=== PATIENT | female | born 1935 | race Caucasian/White ===

== ENCOUNTER 2017-05-08 08:23 | Emergency (ER) | payer MEDICARE, BC ==
[~2017-05-08 08:23] MED LIST: ASPI81 PO; ATEN-102 PO; FISH1000 PO; HYDR-2768 PO; I CAP PO; LISI-363 PO; OMEP20TA PO; ROSU20 PO
[2017-05-08 08:28] VITALS: BP 196/84; PULSE 80; RESP 16; TEMP 98.8; O2SAT 97
--- NOTE | 2017-05-08 08:37 | PD ---
HPI Chief Complaint: Abdominal Pain Time Seen by Provider: 08:27 Travel History International Travel<30 days: No Contact w/Intl Traveler<30days: No History of Present Illness HPI 82yo F with PMH of HTN and CAD presents to the ED with c/o lower abdominal pain for 2 days. Pain is mainly in left lower abdomen and radiates across lower abdomen. Had nonbloody diarrhea yesterday. Associated with nausea but no vomiting. Denies any fever, chest pain, sob, dysuria, hematuria. Previous abdominal surgery include hernia repair. PFSH Past Medical History Cardiac Catheterization: Yes High Cholesterol: Yes Chest Pain: Yes Coronary Artery Disease: Yes Diminished Hearing: Yes ([place]) GERD: Yes Hypertension: Yes Inguinal Hernia: Yes (LT SIDE REPAIR) Myocardial Infarction: Yes (X 2) Menopausal: Yes Past Surgical History Abdominal Surgery: Yes (ABDOMINAL LEFT GROIN) Coronary Artery Bypass Graft: Yes (X 5 VESSELS) Social History Alcohol Use: No Tobacco Use: No (QUIT, APPROXIMATELY 20 YRS AGO, SMOKED 1/2 PPD) Substance Use: No Allergies-Medications (Allergen,Severity, Reaction): Coded Allergies: pyridoxal phosphate (Verified Allergy, Severe, Rash, 05/08/17) Reported Meds & Prescriptions Reported Meds & Active Scripts Active Miralax Powder (Polyethylene Glycol 3350 Powder) 17 Gm Powd 17 Gm PO DAILY Mix and dissolve one measuring cap-ful (17 grams) in water or juice. Hydrocodone-Acetaminophen 5-325 mg Tab 1 Tab PO Q6H PRN Tylenol (Acetaminophen) 325 Mg Tab 650 Mg PO Q6H PRN Reported Preservision Areds (Multiple Vitamins W/ Minerals) 1 Tab 1 Tab PO DAILY Pravastatin 80 Mg Tab 80 Mg PO DAILY Aspirin Children's (Aspirin) 81 Mg Chew 81 Mg CHEW DAILY Hydrochlorothiazide 25 Mg Tab 37.5 Mg PO DAILY Atenolol 25 Mg Tab 25 Mg PO HS Atenolol 50 Mg Tab 50 Mg PO DAILY Lisinopril 40 Mg Tab 40 Mg PO DAILY Omeprazole 20 Mg Tab 20 Mg PO DAILY Amlodipine (Amlodipine Besylate) 5 Mg Tab 5 Mg PO DAILY Review of Systems Except as stated in HPI: all other systems reviewed are Neg Physical Exam Narrative GENERAL: 82yo F not in distress. SKIN: Focused skin assessment warm/dry. HEAD: Atraumatic. Normocephalic. CARDIOVASCULAR: Regular rate and rhythm. No murmur appreciated. RESPIRATORY: No accessory muscle use. Clear to auscultation. Breath sounds equal bilaterally. GASTROINTESTINAL: Abdomen soft, Mild TTP LLQ. No rebound tenderness or guarding. RECTAL: External hemorrhoids. MUSCULOSKELETAL: No obvious deformities. No clubbing. No cyanosis. No edema. NEUROLOGICAL: Awake and alert. No obvious cranial nerve deficits. Motor grossly within normal limits. Normal speech. PSYCHIATRIC: Appropriate mood and affect; insight and judgment normal. Data Data Last Documented VS Vital Signs Date Time Temp Pulse Resp B/P (MAP) Pulse Ox O2 Delivery O2 Flow Rate FiO2 05/08/17 11:44 05/08/17 11:42 66 16 97 Room Air 05/08/17 08:28 98.8 Orders Orders Complete Blood Count With Diff (05/08/17 08:34) Comprehensive Metabolic Panel (05/08/17 08:34) Lipase (05/08/17 08:34) Urinalysis - C+S If Indicated (05/08/17 08:34) Ct Abd/Pel W Iv Contrast(Rout) (05/08/17 08:34) Morphine Inj (Morphine Inj) (05/08/17 08:45) Ondansetron Inj (Zofran Inj) (05/08/17 08:45) Iohexol 350 Inj (Omnipaque 350 Inj) (05/08/17 09:47) Ketorolac Inj (Toradol Inj) (05/08/17 11:30) Labs Laboratory Tests Test 05/08/17 08:54 White Blood Count 7.3 TH/MM3 Red Blood Count 4.10 MIL/MM3 Hemoglobin 11.7 GM/DL Hematocrit 35.3 % Mean Corpuscular Volume 86.1 FL Mean Corpuscular Hemoglobin 28.6 PG Mean Corpuscular Hemoglobin Concent 33.2 % Red Cell Distribution Width 13.6 % Platelet Count 173 TH/MM3 Mean Platelet Volume 8.8 FL Neutrophils (%) (Auto) 81.1 % Lymphocytes (%) (Auto) 12.2 % Monocytes (%) (Auto) 6.1 % Eosinophils (%) (Auto) 0.2 % Basophils (%) (Auto) 0.4 % Neutrophils # (Auto) 6.0 TH/MM3 Lymphocytes # (Auto) 0.9 TH/MM3 Monocytes # (Auto) 0.4 TH/MM3 Eosinophils # (Auto) 0.0 TH/MM3 Basophils # (Auto) 0.0 TH/MM3 CBC Comment DIFF FINAL Differential Comment Urine Collection Type CLEAN CATCH Urine Color YELLOW Urine Turbidity SLIGHT Urine pH 6.0 Urine Specific [place] 1.023 Urine Protein 100 mg/dL Urine Glucose (UA) NEG mg/dL Urine Ketones 15 mg/dL Urine Occult Blood NEG Urine Nitrite NEG Urine Bilirubin NEG Urine Leukocyte Esterase NEG Urine Squamous Epithelial Cells 0-5 /hpf Urine Amorphous Sediment FEW Urine Hyaline Casts 0-2 /lpf Microscopic Urinalysis Comment CULT NOT INDICATED Urine Collection Time 0854 Blood Urea Nitrogen 17 MG/DL Creatinine 1.10 MG/DL Random Glucose 122 MG/DL Total Protein 7.7 GM/DL Albumin 3.5 GM/DL Calcium Level 9.4 MG/DL Alkaline Phosphatase 61 U/L Aspartate Amino Transf (AST/SGOT) 18 U/L Alanine Aminotransferase (ALT/SGPT) 11 U/L Total Bilirubin 0.6 MG/DL Sodium Level 133 MEQ/L Potassium Level 3.5 MEQ/L Chloride Level 100 MEQ/L Carbon Dioxide Level 21.5 MEQ/L Anion Gap 12 MEQ/L Estimat Glomerular Filtration Rate 47 ML/MIN Lipase 99 U/L [facility] Medical Decision Making Medical Screen Exam Complete: Yes Emergency Medical Condition: Yes Differential Diagnosis Acute diverticulitis vs. nephrolithiasis vs. cystitis Narrative Course 82yo F with left lower abdominal pain. It is very mild on exam and pt is well appearing. Labs reviewed, no leukocytosis. Mild hyponatremia at 133. Lipase normal. UA showed no leukocyte. Culture not indicated. CT a/p showed circumferential wall thickening within rectum. Recommend rectal exam for hemorrhoids to exclude infiltrating mass. Pt has history of hemorrhoids. Rectal exam showed external hemorrhoids. No mass palpated on rectal exam. Pt' s pain improved after morphine 2mg and zofran. Pt is tolerating PO. Return precautions given. Diagnosis Primary Impression: Abdominal pain Qualified Codes: R10.32 - Left lower quadrant pain Patient Instructions: General Instructions Departure Forms: Tests/Procedures Additional Instructions: Please follow up with your primary care physician in 2-3 days. Return to the ED if symptoms worsen. Med/Other Pt SpecificInfo: Prescription(s) given Scripts Acetaminophen (Tylenol) 325 Mg Tab 650 MG PO Q6H Y for PAIN SCALE 1 TO 4, #20 TAB 0 Refills Prov: Nyla Morales DO 05/08/17 Disposition: 01 DISCHARGE HOME Condition: Stable Nyla Morales DO May 08, 2017 08:37
[2017-05-08] MEDS ORDERED: AMLO5TAB2 PO (08:44)
[2017-05-08] MEDS ORDERED: ASPI81CH7 CHEW (08:44)
[2017-05-08] MEDS ORDERED: ATEN25TA PO (08:44)
[2017-05-08] MEDS ORDERED: PRAV80TA2 PO (08:44)
[2017-05-08] MEDS ORDERED: OCUVTAB4 PO (08:44)
[2017-05-08] MEDS ORDERED: OMEP20TA93 PO (08:44)
[2017-05-08] MEDS ORDERED: HYDR25TA5 PO (08:44)
[2017-05-08] MEDS ORDERED: LISI40TA PO (08:44)
[2017-05-08] MEDS ORDERED: ATEN50TA PO (08:44)
[2017-05-08] MEDS ORDERED: ONDANSETRON HCL 4 MG/2 ML VIAL IVP ONE (08:45)
[2017-05-08] MEDS ORDERED: MORPHINE SULFATE 4 MG/ML INJ IV PUSH ONE (08:45)
[2017-05-08 08:59] VITALS: BP 135/57; PULSE 66; RESP 16; O2SAT 95
[2017-05-08 09:08] LABS: BILIRUBIN, URINE NEG (NEG); BLOOD, URINE NEG (NEG); GLUCOSE,URINE NEG (NEG); KETONE, URINE 15 mg/dL (NEG); NITRITE,URINE NEG (NEG); URINE LEUKOCYTE ESTERASE NEG (NEG)
[2017-05-08 09:11] LABS: CHLORIDE 100 MEQ/L (98-107); SODIUM (NA) 133 MEQ/L (136-145)
[2017-05-08 09:14] LABS: CALCIUM 9.4 MG/DL (8.5-10.1)
[2017-05-08 09:15] LABS: ALBUMIN 3.5 GM/DL (3.4-5.0); BICARBONATE 21.5 MEQ/L (21.0-32.0); BLOOD UREA NITROGEN 17 MG/DL (7-18); GLUCOSE,RANDOM 122 MG/DL (74-106); LIPASE 99 U/L (73-393)
[2017-05-08 09:18] LABS: ALT (GPT) 11 U/L (10-53); AST (GOT) 18 U/L (15-37); GLOMERULAR FILTRATION RATE 47 ML/MIN (>89)
[2017-05-08 09:19] LABS: TOTAL BILIRUBIN ADULT 0.6 MG/DL (0.2-1.0); TOTAL PROTEIN 7.7 GM/DL (6.4-8.2)
[2017-05-08 09:20] LABS: ALKALINE PHOSPHATASE 61 U/L (45-117); URINE COLOR YELLOW (YELLW/STRAW)
[2017-05-08 09:21] LABS: AMORPHOUS SEDIMENT, URINE FEW; HYALINE CAST, URINE 0-2 /lpf (RARE); SQUAMOUS EPITHELIAL CELL URINE 0-5 /hpf (0-5)
[2017-05-08 09:22] LABS: BASOPHIL % 0.4 % (0.0-2.0); EOSINOPHIL % 0.2 % (0.0-4.0); HEMATOCRIT 35.3 % (35.0-46.0); HEMOGLOBIN 11.7 GM/DL (11.6-15.3); LYMPH % 12.2 % (9.0-44.0); LYMPHOCYTE # 0.9 TH/MM3 (1.0-4.8); MEAN CELL VOLUME 86.1 FL (80.0-100.0); MEAN CORPUSCULAR HEMOGLOBIN 28.6 PG (27.0-34.0); MEAN CORPUSCULAR HGB CONC 33.2 % (32.0-36.0); MEAN PLATELET VOLUME 8.8 FL (7.0-11.0); MONO % 6.1 % (0.0-8.0); MONOCYTE # 0.4 TH/MM3 (0-0.9); NEUT % 81.1 % (16.0-70.0); PLATELET COUNT 173 TH/MM3 (150-450); RED CELL DISTRIBUTION WIDTH 13.6 % (11.6-17.2); WHITE BLOOD COUNT 7.3 TH/MM3 (4.0-11.0)
[2017-05-08] MEDS ORDERED: IOHEXOL 350 MG/ML 10 ML VIAL (for RAD DIAG) IVCONTRAST ONE (09:47)
[2017-05-08 09:57] VITALS: BP 141/45; PULSE 75; RESP 17; O2SAT 95
--- NOTE | 2017-05-08 10:45 | RADRPT ---
EXAM DATE/TIME: 05/08/2017 09:35 [facility] COMPARISON: No previous studies available for comparison. INDICATIONS : Left lower abdominal pain, nausea, vomiting Diarrhea. IV CONTRAST: 100 cc Omnipaque 350 (iohexol) IV ORAL CONTRAST: No oral contrast ingested. RADIATION DOSE: 8.90 CTDIvol (mGy) MEDICAL HISTORY : Cardiovascular disease. SURGICAL HISTORY : CABG Inguinal hernia repair. ENCOUNTER: Initial ACUITY: 2 days PAIN SCALE: 6/10 LOCATION: Left lower quadrant TECHNIQUE: Volumetric scanning of the abdomen and pelvis was performed. Using automated exposure control and ad justment of the mA and/or kV according to patient size, radiation dose was kept as low as reasonably achievable to obtain optimal diagnostic quality images. DICOM format image data is available electro nically for review and comparison. FINDINGS: LOWER LUNGS: The visualized lower lungs are clear. LIVER: Homogeneous density without lesion. There is no dilation of the biliary tree. Gallstones are identif ied within the gallbladder. No evidence of wall thickening. SPLEEN: Normal size without lesion. PANCREAS: Within normal limits. KIDNEYS: The kidneys appear mildly atrophic bilaterally. No evidence of concerning mass or hydronephrosis. ADRENAL GLANDS: Within normal limits. VASCULAR: Scattered atherosclerosis. BOWEL/MESENTERY: The cecum and terminal ileum are identified within the midline pelvis with the descending and transve rse colon also seen within the left hemipelvis. Scattered diverticuli. No evidence of abnormal wall t hickening. The rectum demonstrates circumferential wall thickening which may be related to hemorrhoid s. Correlation should be made with digital rectal exam.. ABDOMINAL WALL: Within normal limits. RETROPERITONEUM: There is no lymphadenopathy. BLADDER: No wall thickening or mass. REPRODUCTIVE: Within normal limits. INGUINAL: There is no lymphadenopathy or hernia. MUSCULOSKELETAL: Within normal limits for patient age. CONCLUSION: The large bowel is identified within the left hemipelvis and abdomen with the small bowel identified within the mid abdomen and right pelvis. There is circumferential wall thickening identified within t he rectum. This should be correlated with rectal exam for hemorrhoids to exclude any infiltrating mas s. Cholelithiasis without evidence of cholecystitis.. Danae Alexis MD on May 08, 2017 at 10:35 Board Certified Radiologist. This report was verified electronically.
[2017-05-08 10:50] VITALS: BP 113/56; PULSE 62; RESP 17; O2SAT 96
[2017-05-08] MEDS ORDERED: TYLE325T PO (11:29)
[2017-05-08] MEDS ORDERED: KETOROLAC TROMETHAMINE 30 MG/ML (IVP) VIAL IV PUSH ONE (11:30)
[2017-05-08 11:42] VITALS: BP 116/46; PULSE 66; RESP 16; O2SAT 97
[2017-05-09] MEDS ORDERED: HYDR-3516 PO (11:20)
[2017-05-09] MEDS ORDERED: MIRA3350 PO (11:20)
== END 2017-05-08 11:45 | disposition home or self-care (01) ==
LOC: PHED 08:23
DX: R10.32 Left lower quadrant pain (principal); K80.20 Calculus of gallbladder without cholecystitis without obstruction; E78.00 Pure hypercholesterolemia, unspecified; I10 Essential (primary) hypertension; I25.10 Atherosclerotic heart disease of native coronary artery without angina pectoris; I25.2 Old myocardial infarction; K21.9 Gastro-esophageal reflux disease without esophagitis; Z95.1 Presence of aortocoronary bypass graft; Z87.891 Personal history of nicotine dependence
CPT/HCPCS: 74177; 80053; 81001; 83690; 85025; 96374; 96375; 99285; J2270; J2405; Q9967

== ENCOUNTER 2017-05-09 09:55 | Emergency (ER) | payer MEDICARE, BC ==
[~2017-05-09] VITALS: Ht 157.5 cm; Wt 61.0 kg
[~2017-05-09 09:55] MED LIST changes: +AMLO5TAB2 PO; -ASPI81 PO; +ASPI81CH7 CHEW; -ATEN-102 PO; +ATEN25TA PO; +ATEN50TA PO; -FISH1000 PO; -HYDR-2768 PO; +HYDR25TA5 PO; -I CAP PO; -LISI-363 PO; +LISI40TA PO; +OCUVTAB4 PO; -OMEP20TA PO; +OMEP20TA93 PO; +PRAV80TA2 PO; -ROSU20 PO; +TYLE325T PO
[2017-05-09 09:58] VITALS: BP 153/67; PULSE 82; RESP 16; TEMP 98.2; O2SAT 96
--- NOTE | 2017-05-09 11:10 | PD ---
HPI Chief Complaint: Abdominal Pain Time Seen by Provider: 11:09 Travel History International Travel<30 days: No Contact w/Intl Traveler<30days: No Traveled to known affect area: No History of Present Illness HPI 82-year-old female came to the emergency room with history of left lower quadrant abdominal pain that has been there for 2 days. Patient was in the emergency room yesterday and was seen by the other ER physician. There was blood work, UA and CT scan done. The CT scan showed some thickening around the rectal wall which upon the ER physician's rectal exam showed some hemorrhoids. Patient was decided to be discharged home and was given a prescription for hydrocodone. But she refused to take that and instead was sent home on Tylenol. Currently she is back saying that the Tylenol is not really helping and she should have agreed to take the stronger pain medication. She comes here during winter from [place]. Does not have any local physicians in the area. She does have a GI specialist that she gets colonoscopy from once every 5 years. He is back in [place]. Vital signs are stable. Patient has not have bowel movement in 2 days. Patient says that the pain radiates back to her left hip. No aggravating or relieving factors. No history of vomiting, fever or chills. PFSH Past Medical History Narrative Medical List of her past medical, surgical, social and family history is reviewed from the nursing note. Cardiac Catheterization: Yes Cardiovascular Problems: Yes (HTN, open heart surg) High Cholesterol: Yes Chest Pain: Yes Coronary Artery Disease: Yes Diminished Hearing: Yes ([place]) GERD: Yes Hypertension: Yes Inguinal Hernia: Yes (LT SIDE REPAIR) Myocardial Infarction: Yes (X 2) Influenza Vaccination: Yes ?: Not Menopausal: Yes Past Surgical History Abdominal Surgery: Yes (ABDOMINAL LEFT GROIN) Coronary Artery Bypass Graft: Yes (X 5 VESSELS) Social History Alcohol Use: No Tobacco Use: No (QUIT, APPROXIMATELY 20 YRS AGO, SMOKED 1/2 PPD) Substance Use: No Allergies-Medications (Allergen,Severity, Reaction): Coded Allergies: pyridoxal phosphate (Verified Allergy, Severe, Rash, 05/08/17) Comments List of allergies to be from the nursing note. Reported Meds & Prescriptions Reported Meds & Active Scripts Active Miralax Powder (Polyethylene Glycol 3350 Powder) 17 Gm Powd 17 Gm PO DAILY Mix and dissolve one measuring cap-ful (17 grams) in water or juice. Hydrocodone-Acetaminophen 5-325 mg Tab 1 Tab PO Q6H PRN Tylenol (Acetaminophen) 325 Mg Tab 650 Mg PO Q6H PRN Reported Preservision Areds (Multiple Vitamins W/ Minerals) 1 Tab 1 Tab PO DAILY Pravastatin 80 Mg Tab 80 Mg PO DAILY Aspirin Children's (Aspirin) 81 Mg Chew 81 Mg CHEW DAILY Hydrochlorothiazide 25 Mg Tab 37.5 Mg PO DAILY Atenolol 25 Mg Tab 25 Mg PO HS Atenolol 50 Mg Tab 50 Mg PO DAILY Lisinopril 40 Mg Tab 40 Mg PO DAILY Omeprazole 20 Mg Tab 20 Mg PO DAILY Amlodipine (Amlodipine Besylate) 5 Mg Tab 5 Mg PO DAILY Narrative Medication List of her home medications reviewed from the nursing note. Review of Systems Except as stated in HPI: all other systems reviewed are Neg Gastrointestinal: Positive: Abdominal Pain, Constipation Physical Exam Narrative GENERAL: Awake, alert, anxious, mild distress SKIN: Focused skin assessment warm/dry. HEAD: Atraumatic. Normocephalic. EYES: Pupils equal and round. No scleral icterus. No injection or drainage. ENT: No nasal bleeding or discharge. Mucous membranes pink and moist. NECK: Trachea midline. No JVD. CARDIOVASCULAR: Regular rate and rhythm. No murmur appreciated. RESPIRATORY: No accessory muscle use. Clear to auscultation. Breath sounds equal bilaterally. GASTROINTESTINAL: Abdomen soft, non-tender, nondistended. Hepatic and splenic margins not palpable. MUSCULOSKELETAL: No obvious deformities. No clubbing. No cyanosis. No edema. NEUROLOGICAL: Awake and alert. No obvious cranial nerve deficits. Motor grossly within normal limits. Normal speech. PSYCHIATRIC: Appropriate mood and affect; insight and judgment normal. Data Data Last Documented VS Vital Signs Date Time Temp Pulse Resp B/P (MAP) Pulse Ox O2 Delivery O2 Flow Rate FiO2 05/09/17 09:58 98.2 82 16 153/67 (95) 96 Orders Orders Ed Discharge Order (05/09/17 11:17) MDM Medical Decision Making Medical Screen Exam Complete: Yes Emergency Medical Condition: Yes Medical Record Reviewed: Yes Differential Diagnosis Pelvic pain, recurrent pain Narrative Course 7:23 AM patient had already called workup done 24 hours ago including a CAT scan. I am comfortable giving her a prescription for hydrocodone and MiraLAX and discharging her home. However I did stress upon the fact that if her pain does not get better than she needs to contact her GI specialist from [place] and might even have to go to get the procedure done sooner than later since patient has no primary care physician in the local area and she does not go back to [place] to July. Procedures EKG Prior to Arrival: No Diagnosis Primary Impression: Pelvic pain in female Referrals: Primary Care Physician Additional Instructions: Take the medication as per the prescription direction. The pain medication may make you groggy. Be careful while walking. You should not be driving. There is another prescription for laxative since the pain medication may make you constipated. They state the 2 together. If the pain is not better but returns after 2 days of medication and use should contact your GI specialist and plan for a colonoscopy. Med/Other Pt SpecificInfo: Prescription(s) given Scripts Polyethylene Glycol 3350 Powder (Miralax Powder) 17 Gm Powd 17 GM PO DAILY for Constipation, #1 CAN 0 Refills Mix and dissolve one measuring cap-ful (17 grams) in water or juice. Prov: Aziza Ward MD 05/09/17 Hydrocodone-Acetaminophen (Hydrocodone-Acetaminophen) 5-325 mg Tab 1 TAB PO Q6H Y for PAIN, #10 TAB 0 Refills Prov: Aziza Ward MD 05/09/17 Disposition: 01 DISCHARGE HOME Condition: Stable Aziza Ward MD May 09, 2017 11:10
[2017-05-09] MEDS ORDERED: HYDR-3516 PO (11:20)
[2017-05-09] MEDS ORDERED: MIRA3350 PO (11:20)
== END 2017-05-09 11:29 | disposition home or self-care (01) ==
LOC: PHED 09:55
DX: R10.2 Pelvic and perineal pain (principal); I10 Essential (primary) hypertension; E78.00 Pure hypercholesterolemia, unspecified; I25.10 Atherosclerotic heart disease of native coronary artery without angina pectoris; K21.9 Gastro-esophageal reflux disease without esophagitis; I25.2 Old myocardial infarction
CPT/HCPCS: 99281